=== PATIENT | female | born 1980 | race Caucasian/White ===

== ENCOUNTER 2016-11-18 18:57 | Emergency (ER) | payer SELFPAY ==
[~2016-11-18 18:57] MED LIST: Iopamidol 370 76% 100 ML VIAL ONE
[2016-11-18] MEDS ORDERED: Ondansetron ODT 4 MG TAB ONE (19:13)
[2016-11-18 19:19] LABS: Bilirubin Negative (Negative); Blood, Urine Trace (Negative); Glucose, Urine (Dipstick) Negative (Negative); Leukocyte Negative (Negative); Nitrite Negative (Negative); Protein, Urine (Dipstick) Negative (Neg-Trace); Urobilinogen 0.2 mg/dL (0.2-1.0)
[2016-11-18 19:26] LABS: Clarity SL HAZY (Clear)
[2016-11-18 19:27] LABS: Bacteria/HPF Rare-Few HPF (None Seen); Pregu Control Bar Appear? YES (CONTROL BAR); RBC/HPF 0-3 HPF (0-3); Squamous Epithelial 0-3 HPF (0-3); WBC/HPF 0-3 HPF (0-3)
[2016-11-18] MEDS ORDERED: Sodium Chloride 0.9% 1,000 ML ONE (19:30)
[2016-11-18 19:47] LABS: #Basophils 0.1 thou/uL (0.0-0.2); #Eosinphils 0.1 thou/uL (0.0-0.7); #Lymphocytes 2.2 thou/uL (1.20-3.40); #Monocytes 0.7 thou/uL (0.11-0.59); #Neutrophils 6.9 thou/uL (1.40-6.50); %Basophils 0.8 % (0.0-1.0); %Eosinophils 1.5 % (0.0-10.0); %Lymphocytes 21.9 % (21.0-51.0); %Neutrophils 68.8 % (42.0-75.0); Hemoglobin 12.5 g/dL (12.0-16.0); Mean Corpuscular HGB CONC 32.1 g/dL (32.0-36.0); Mean Corpuscular Hemoglobin 26.5 pg (27.0-31.0); Mean Corpuscular Volume 82.5 fl (81.0-99.0); Mean Platelet Volume 6.5 fL (7.4-10.4); Platelet Count 190 thou/uL (130-400); RBC Distribution Width 12.3 % (11.5-14.5); Red Blood Cell (RBC) Count 4.72 mill/uL (4.20-5.40)
[2016-11-18 19:59] LABS: ALT (SGPT) 21 U/L (0-55); AST (SGOT) 19 U/L (5-34); Albumin 3.8 g/dL (3.5-5.0); Alkaline Phosphatase 62 U/L (40-150); Anion Gap 15 mmol/L (10-20); BUN (Urea Nitrogen) 20 mg/dL (7.0-18.7); Bilirubin, Total 0.2 mg/dL (0.2-1.2); Calc. Creatinine Clearance 0 mL/min (70-130); Calcium 8.9 mg/dL (7.8-10.44); Carbon Dioxide 23 mmol/L (22-29); Chloride 105 mmol/L (98-107); Estimated GFR-MDRD 73; Globulin 3.1 g/dL (2.4-3.5); Glucose 103 mg/dL (70-105); Lipase 64 U/L (8-78); Potassium 3.8 mmol/L (3.5-5.1); Protein, Total 6.9 g/dL (6.0-8.3); Sodium 139 mmol/L (136-145)
--- NOTE | 2016-11-18 21:10 | CT ---
CT ABDOMEN AND PELVIS WITH CONTRAST 11/18/16 COMPARISON: None. HISTORY: Suprapubic and lower abdominal pain and pressure with diaphoresis. Vomiting. TECHNIQUE: Multiple contiguous axial images were obtained in a CT of the abdomen and pelvis with contrast. Uriel nal reformats were performed. FINDINGS: There is a hypodensity along the inferior tip of the spleen measuring 6.1 cm in greatest dimension. This likely represents a cyst. No other splenic abnormality is seen. The liver, gallbladder, kidneys , adrenal glands, and pancreas are unremarkable. No free air, free fluid or stranding changes are se en in the abdomen or pelvis. The reproductive organs are unremarkable. The large and small bowel are unremarkable. The appendix i s normal. No abdominal or pelvic lymphadenopathy are seen. The osseous structures, visualized inferior thorax and abdominal wall soft tissues are unremarkable. IMPRESSION: 1. Cystic structure along the inferior tip of the spleen may represent a splenic cyst but is no nspecific. 2. No evidence of acute intra-abdominal/pelvic abnormality. POS: [facility]
== END 2016-11-18 20:19 | disposition short-term general hospital (02) ==
LOC: NAV ERS 18:57
DX: R10.32 Left lower quadrant pain (principal); Z87.891 Personal history of nicotine dependence; Z79.2 Long term (current) use of antibiotics
CPT/HCPCS: 74177; 80053; 81003; 81015; 81025; 83690; 85025; 96361; 96374; J2270; J7050; Q0162